=== PATIENT | male | born 1945 | race Caucasian/White ===

== ENCOUNTER 2017-04-27 05:24 | Inpatient (IN) ==
--- NOTE | 2017-04-27 05:35 | Emergency Department Note ---
Disposition Clinical Impression: Cerebrovascular accident Qualifiers: CVA mechanism: unspecified Qualified Code(s): I63.9 - Cerebral infarction, unspecified Disposition: Admitted As Inpatient Condition: Undetermined Referrals: Unassigned,Provider [Non-Partnered Physician] - Forms: ED Satisfaction Letter Time of Disposition: 06:32 Neuro HPI - General Chief Complaint: ED Neuro Symptoms/Deficit Stated Complaint: right arm numbness Time Seen by Provider: 04/27/17 05:28 Source: patient Mode of arrival: ambulatory Limitations: no limitations Nursing Notes Reviewed: Yes Vital Signs Reviewed: Yes - History of Present Illness HPI Narrative: 71-year-old male arrives [facility] emergency department complaining of right upper extremity numbness started at roughly 2 PM yesterday afternoon. The patient states he woke up roughly 45 minutes ago with complaint of total right upper and lower, and facial numbness and the patient states that he has never had a TIA or CVA in the past. The patient does have a cardiac history with previous cardiac stent. The patient takes medication for hyperlipidemia, hypertension. He is a not a diabetic. The patient denies any other complaints at this time including right upper or lower extremity weakness. The patient has had no slurred speech. The patient is ambulating around the emergency department prior to physical exam. He is well-appearing otherwise. He is answering all questions appropriately. He denies any other complaints at this time. Onset of Symptoms Date: 04/26/17 Onset of Symptoms Time: 14:00 Symptom Onset Unknown: No Timing confirmed by: spouse Location: right arm History of same: No Quality: numbness, tingling Symptoms Improving: No Improves with: none Worsens with: none Context: sudden onset On Anticoagulants: No Associated symptoms: Reports: denies other symptoms Treatments Prior to Arrival: none - Related Data Allergies/Adverse Reactions: Allergies Allergy/AdvReac Type Severity Reaction Status Date / Time No Known Allergies Allergy Verified 04/27/17 05:35 All systems ED: reviewed and negative except as stated. Constitutional: Denies: fever, chills, weakness, weight change Cardiovascular: Denies: chest pain, palpitations, dyspnea on exertion, edema, syncope Respiratory: Denies: cough, dyspnea, wheezes, hemoptysis, stridor Gastrointestinal: Denies: abdominal pain, nausea, vomiting, diarrhea, constipation, hematemesis, melena, hematochezia Musculoskeletal: Denies: back pain, neck pain, arthralgia, myalgia Integumentary: Denies: rash, abrasion, lesions Neurological: Reports: numbness. Denies: headache, weakness, paresthesias Past Medical History - Past Medical History Attestation: Yes The following information was validated with the patient. Source: patient Medical history: Reports: CHF, coronary artery disease, hypertension - Social History Smoking Status: Never smoker Smokeless Tobacco Status: No Alcohol use: Reports: none Drug use: Reports: none Physical Exam - General Limitations: no limitations General appearance: alert, in no apparent distress - Head Head exam: atraumatic, normocephalic, normal inspection - Eye Eye exam: Present: normal appearance, PERRL, EOMI - ENT ENT exam: normal exam, normal oropharynx, mucous membranes moist - Neck Neck exam: Present: normal inspection, full ROM, trachea midline - Chest Chest inspection: Present: normal inspection, symmetric chest wall rise - Respiratory Respiratory exam: Present: normal lung sounds bilaterally - Cardiovascular Cardiovascular exam: Present: regular rate, normal rhythm, normal heart sounds - Abdominal Exam Abdominal exam: Present: soft, Non-Tender. Absent: tenderness, distention, guarding, rebound, rigidity - Extremities Exam Extremities exam: Present: normal inspection, full ROM. Absent: tenderness, pedal edema - Neurological Exam Neurological exam: Present: alert, oriented X3, CN II-XII intact, normal gait - Expanded Neurological Exam Patient oriented to: Present: person, place, time Speech: Present: fluid speech Cranial nerves: EOM function (II, III, IV, ): Normal, facial sensation (V): Abnormal Right, facial palsy (VII): Normal, gag reflex (IX): Normal, spinal accessory function (XI): Normal, tongue deviation (XII): Normal Cerebellar function: normal gait Motor strength - LUE: 5/5 Motor strength - RUE: 5/5 Motor strength - LLE: 5/5 Motor strength - RLE: 5/5 Sensory exam upper extremity: light touch: Abnormal Right Sensory exam lower extremity: light touch: Abnormal Right Coma Scale Eye Opening: Spontaneous Coma Scale Motor Response: Obeys Commands Coma Scale Verbal Response: Oriented Coma Scale Total: 15 Course Vital Signs Temperature 98.0 F 04/27/17 05:25 Pulse Rate 71 04/27/17 05:25 Respiratory Rate 18 04/27/17 05:25 Blood Pressure 161/97 04/27/17 05:25 O2 Sat by Pulse Oximetry 98 04/27/17 05:25 Temperature 98.0 F 04/27/17 05:25 Pulse Rate 73 04/27/17 06:28 Respiratory Rate 18 04/27/17 06:28 Blood Pressure 162/93 04/27/17 06:28 O2 Sat by Pulse Oximetry 98 04/27/17 06:28 Oxygen Delivery Oxygen Delivery Room Air Neuro Symptoms/Deficit - MDM Narrative Medical decision making narrative: NIH of 1 due to numbness on the right side. We will admit the patient to the hospitalist. Accepted by Dr. Rios. - Lab Data Lab results reviewed: Yes I reviewed the patient's lab results. Result diagrams: 04/27/17 05:40 04/27/17 05:40 Lab Results 04/27/17 04/27/17 04/27/17 Range/Units 05:31 05:40 05:40 WBC 10.5 (4.3-11.1) K/mcL RBC 4.61 (4.19-5.50) M/mcL Hgb 14.5 (12.9-16.9) g/dL Hct 42.3 (37.5-50.1) % MCV 91.8 (83.0-100.0) fL MCH 31.5 (28.0-33.3) pg MCHC 34.3 (31.6-35.5) g/dL RDW 11.7 (11.5-14.5) % Plt Count 197 (140-400) K/mcL MPV 9.9 (9.4-12.4) fL Immature Gran % 0.4 (0-4) % Seg Neutrophils % 45.4 % Lymphocytes % 35.7 % Monocytes % 8.6 % Eosinophils % 8.8 % Basophils % 1.1 % Neutrophils # 4.8 (1.6-8.9) K/mcL Lymphocytes # 3.7 (0.6-4.6) K/mcL Monocytes # 0.9 (0.0-1.3) K/mcL Eosinophils # 0.9 H (0.0-0.6) K/mcL Basophils # 0.1 (0.0-0.2) K/mcL PT 10.9 (9.4-12.1) Seconds INR 1.0 APTT 29.2 (26.0-36.0) Seconds Sodium (136-145) mEq/L Potassium (3.5-4.5) mEq/L Chloride (98-109) mEq/L Carbon Dioxide (19-29) mEq/L BUN (8-26) mg/dL Creatinine (0.72-1.25) mg/dL Est GFR ( Amer) (> 60) Est GFR (Non-Af Amer) (> 60) BUN/Creatinine Ratio (6-26) Glucose (70-99) mg/dL POC Glucose 110 H (58-89) Calculated Osmolality (280-300) Calcium (8.6-10.8) mg/dL Troponin I (0-0.03) ng/mL 04/27/17 04/27/17 Range/Units 05:40 05:40 WBC (4.3-11.1) K/mcL RBC (4.19-5.50) M/mcL Hgb (12.9-16.9) g/dL Hct (37.5-50.1) % MCV (83.0-100.0) fL MCH (28.0-33.3) pg MCHC (31.6-35.5) g/dL RDW (11.5-14.5) % Plt Count (140-400) K/mcL MPV (9.4-12.4) fL Immature Gran % (0-4) % Seg Neutrophils % % Lymphocytes % % Monocytes % % Eosinophils % % Basophils % % Neutrophils # (1.6-8.9) K/mcL Lymphocytes # (0.6-4.6) K/mcL Monocytes # (0.0-1.3) K/mcL Eosinophils # (0.0-0.6) K/mcL Basophils # (0.0-0.2) K/mcL PT (9.4-12.1) Seconds INR APTT (26.0-36.0) Seconds Sodium 138 (136-145) mEq/L Potassium 3.4 L (3.5-4.5) mEq/L Chloride 103 (98-109) mEq/L Carbon Dioxide 27 (19-29) mEq/L BUN 14 (8-26) mg/dL Creatinine 1.06 (0.72-1.25) mg/dL Est GFR ( Amer) > 60 (> 60) Est GFR (Non-Af Amer) > 60 (> 60) BUN/Creatinine Ratio 13 (6-26) Glucose 119 H (70-99) mg/dL POC Glucose (58-89) Calculated Osmolality 288 (280-300) Calcium 9.3 (8.6-10.8) mg/dL Troponin I 0.00 (0-0.03) ng/mL - Radiology Data Radiology results reviewed: Yes I reviewed the patient's radiology results. - EKG Data EKG attestation: Yes I reviewed and interpreted this EKG. EKG results narrative: Heart rate 71 bpm. DC interval 154 ms. QTc 425 ms. Normal axis. Normal sinus rhythm. No ST elevation or ST depression noted. EKG demonstrates intermittent PVCs. Exception of PVCs EKG similar to EKG from 08/24/2010. No other acute changes noted. NIH Stroke Scale - Level of Consciousness LOC: Alert - LOC Questions LOC Questions: Answers both correctly - LOC Commands LOC Commands: Performs both correctly - Best Gaze Best Gaze: Normal - Visual Visual: No visual loss - Facial Palsy Facial Palsy: Normal - Motor Arms Motor Arm-Left: No drift for 10 seconds Motor Arm-Right: No drift for 10 seconds - Motor Legs Motor Leg-Left: No drift for 5 seconds Motor Leg-Right: No drift for 5 seconds - Limb Ataxia Limb Ataxia: Normal, No Ataxia - Sensory Sensory: Mild to moderate loss, "not as sharp" - Best Language Best Language: No aphasia - Dysarthria Dysarthria: Normal - Extinction and Inattention Extinction and Inattention: Normal - NIHSS Total Score NIHSS Total Score: 1 TPA Checklist - LKW: 3-4.5 hrs Add. Warnings/Precautions Patient/family understanding: The patient/family members have been counseled and understood the risk, benefit , and alternatives of treatment.
--- NOTE | 2017-04-27 05:37 | Emergency Department Note ---
START Narrative - START START: I examined this patient and my medical decision-making was reviewed with the RESTAURANT GREETER/PA/Advanced Practice Nurse/Resident Physician. I agree with the documented findings, disposition and treatment plan as described except to the extent set forth below. ED attending note: Patient seen with emergency medicine resident Dr. Perez. Please see a copy of his note for details of the H&P, evaluation, management and disposition of this patient. We independently had [id number] contact with the patient Briefly: 71-year-old male history of coronary artery disease and cardiac stents since 2 PM yesterday numbness and paresthesias of his right upper extremity. No affectation of speech, balance, no headache or visual disturbances. no prior TIAs or CVAs. Table vital signs. His NIH is 1. Some facial dysthesias as well. Cranial nerves II through XII tested and normal and intact. EKG shows no acute ischemic changes. Patient will get a TIA workup. Admission will be considered. Disposition pending
[2017-04-27 05:52] LABS: Prothrombin Time 10.9 Seconds (9.4-12.1)
[2017-04-27 05:55] LABS: Activated Partial Thrombo Time 29.2 Seconds (26.0-36.0)
[2017-04-27 05:56] LABS: Basophils # 0.1 K/mcL (0.0-0.2); Basophils % 1.1 %; Eosinophils # 0.9 K/mcL (0.0-0.6); Eosinophils % 8.8 %; Hematocrit 42.3 % (37.5-50.1); Hemoglobin 14.5 g/dL (12.9-16.9); Immature Granulocytes % 0.4 % (0-4); Lymphocytes # 3.7 K/mcL (0.6-4.6); Lymphocytes % 35.7 %; Mean Corpuscular HGB Conc 34.3 g/dL (31.6-35.5); Mean Corpuscular Hemoglobin 31.5 pg (28.0-33.3); Mean Corpuscular Volume 91.8 fL (83.0-100.0); Mean Platelet Volume 9.9 fL (9.4-12.4); Monocytes # 0.9 K/mcL (0.0-1.3); Monocytes % 8.6 %; Neutrophils # 4.8 K/mcL (1.6-8.9); Platelet Count 197 K/mcL (140-400); Red Blood Count 4.61 M/mcL (4.19-5.50); Red Cell Distribution Width 11.7 % (11.5-14.5); Segmented Neutrophils % 45.4 %
[2017-04-27 06:00] LABS: BUN/Creatinine Ratio 13 (6-26); Blood Urea Nitrogen 14 mg/dL (8-26); Calcium 9.3 mg/dL (8.6-10.8); Carbon Dioxide 27 mEq/L (19-29); Chloride 103 mEq/L (98-109); Glucose 119 mg/dL (70-99); Osmolality,Calculated 288 (280-300); Potassium 3.4 mEq/L (3.5-4.5); Sodium 138 mEq/L (136-145); eGFR For African Americans > 60 (> 60); eGFR For Non-African Americans > 60 (> 60)
[2017-04-27] MEDS ORDERED: Aspirin 325 MG TABLET PO ONE (06:14)
[2017-04-27] MEDS ORDERED: Naloxone 0.4 MG/ML INJ IVP PRN (07:36)
[2017-04-27] MEDS ORDERED: *HR* Morphine 2 MG/ML SYRINGE IVP PRN (07:36)
[2017-04-27] MEDS ORDERED: Ondansetron 4 MG/2 ML VIAL IVP PRN (07:36)
[2017-04-27] MEDS ORDERED: *HR* HYDROcodone/Acet 5/325 mg TABLET PO PRN (07:36)
[2017-04-27] MEDS ORDERED: Acetaminophen 325 MG TABLET PO PRN (07:36)
[2017-04-27 08:13] LABS: Chol/HDL Ratio 3.7 (0-4.9); Cholesterol 155 mg/dL (< 200); HDL Cholesterol 42 mg/dL (40-59); LDL Cholesterol,Calculated 86 mg/dL (0-99); Triglycerides 133 mg/dL (< 150)
--- NOTE | 2017-04-27 08:37 | Internal Med History&Physical ---
Date of Encounter: 04/27/17 Time of Encounter: 08:35 Assessment and Plan (1) Cerebrovascular accident Current visit: Yes Status: Acute Suspected, ischemic CVA, unlikely TIA NIHSS 1 for sensory deficits Continue Neurochecks q2H Head CT shows no infarcts Obtain Brain MRI Obtain ECHO, Carotid doppler No speech or motor deficits Neurology eval EKG shows PVC, baseline rhythm is sinus, continue telemetry monitoring Continue ASA 81mg daily Lipid panel is unremarkable patient takes Lipitor 40 at home, continue same BP is acceptable, resume home meds, no aggressive control PT/OT eval Patient may be fed if he passes the bedside swallow test Qualifiers: CVA mechanism: unspecified Qualified Code(s): I63.9 - Cerebral infarction, unspecified (2) Hypokalemia Current visit: Yes Status: Acute Replaced with po Follow repeat Chem a.m (3) HTN (hypertension) Current visit: Yes Status: Chronic Controlled, resume home meds Qualifiers: Hypertension type: essential hypertension Qualified Code(s): I10 - Essential (primary) hypertension (4) HLD (hyperlipidemia) Current visit: Yes Status: Chronic Lipid panel WNL continue Lipitor Qualifiers: Hyperlipidemia type: unspecified Qualified Code(s): E78.5 - Hyperlipidemia , unspecified (5) CAD (coronary artery disease) Current visit: Yes Status: Chronic No chest pain Resume home meds Qualifiers: Coronary Disease-Associated Artery/Lesion type: [place] artery [place] vs. transplanted heart: [place] heart Associated angina: without angina Qualified Code(s): I25.10 - Atherosclerotic heart disease of [place] coronary artery without angina pectoris (6) Sinusitis Current visit: Yes Status: Chronic Incidental finding on Brain CT patient has no symptoms, no facial tenderness or pressure Qualifiers: Sinusitis location: maxillary Chronicity: unspecified Qualified Code(s): J32.0 - Chronic maxillary sinusitis Internal Medicine - H&P: HPI Chief complaint: Right side numbness Admitted From: Home Plans for Post Hospital Care: Home History of present illness: Mr. Quezada is a 71 year old male with a past medical history for CHF, CAD sp stent >20 years ago, HTN who presented with right facial/perinasal, right upper and right lower extremity numbness. His symptoms started yesterday afternoon, 1400, with R facial and R UL numbness and slowly progressed to his R LE this morning, which prompted his to encourage him to come to the [facility]. He denies any motor weakness, speech deficits or facial droop. He denies any ataxia or gait imbalance, vertigo or dizziness, clumsiness of his hands or swallowing difficulty He also denies any change in taste sensation or neck stiffness, no confusion at any time He denies fever or chills, no chest pain, shortness of breath, orthopnea, PND, no leg swelling He is a known hypertensive and already takes aspirin at home for his CAD. He states he has been told he has "extra beats since his cath" he has never had a stroke or any neurologic problems before He does not have any GI or complains At time of review, his only deficit is sensory, giving him a NIHSS of 1, same as documented in the ER He was given ASA in the ER, work up remarkable for mild hypokalemia and Head CT showed no infarcts Past Med Surg Social Fam HX - Past Medical History Medical history: CHF, coronary artery disease, hypertension Psychiatric history: no psych history - Past Surgical History Surgical History: no surgical history - Social History Smoking Status: Never smoker Smokeless Tobacco Status: No Alcohol use: none Drug use: none Internal Medicine - H&P: Meds Aspirin Enteric Coated [Aspirin EC] 81 mg PO DAILY 04/27/17 [History] Atorvastatin [Lipitor] 40 mg PO HS 04/27/17 [History] Loratadine [Allergy Relief] 10 mg PO DAILY 04/27/17 [History] Metoprolol [Lopressor] 100 mg PO BID 04/27/17 [History] Multivitamin [Multi-Day Vitamins] 1 tab PO DAILY 04/27/17 [History] Ranitidine HCl [Acid Diamond Driller Helper] 150 mg PO DAILY 04/27/17 [History] hydroCHLOROthiazide [Hydrochlorothiazide] 12.5 mg PO DAILY 04/27/17 [History] Allergies No Known Allergies Allergy (Verified 04/27/17 05:35) All Systems PM: A 10-system review of systems was performed and is negative for pertinent findings except as documented above in the HPI. - Constitutional Constitutional: as per HPI - EENT Eyes: as per HPI Ears: as per HPI Nose, mouth and throat: as per HPI - Cardiovascular Cardiovascular ROS IM: as per HPI - Respiratory Respiratory: as per HPI - Gastrointestinal Gastrointestinal: as per HPI - Musculoskeletal Musculoskeletal ROS IM: as per HPI - Integumentary Integumentary IM: as per HPI - Neurological Neurological ROS: as per HPI - Hematologic/Lymphatic Hematologic/Lymphatic: no easy bruising - Constitutional Vitals: Temp Pulse Resp BP Pulse Ox 97.6 F 63 20 150/86 95 04/27/17 08:03 04/27/17 08:03 04/27/17 08:03 04/27/17 08:03 04/27/17 08:03 General appearance: Present: A&O X 3, pleasant, no acute distress - Head Head exam: Present: atraumatic, normocephalic - Eye Eye exam: Present: PERRL, conjuntiva pink, sclera anicteric Pupils: Present: PERRL - Neck Neck exam general surgery: Present: supple, trachea midline. Absent: lymphadenopathy - Respiratory Respiratory exam: Present: CTAB. Absent: accessory muscle use, rales, rhonchi, wheezes - Cardiovascular Cardiovascular exam: Present: RRR (Regularly irregular, lots of PVCs), +S1, + S2. Absent: diastolic murmur, gallop, rubs, systolic murmur - GI/Abdominal GI/Abdominal exam: Present: normal bowel sounds, soft, no peritoneal signs. Absent: distended, tenderness - Extremities Exam Extremities exam: Present: warm, radial pulses palpable and symetrical. Absent : calf tenderness, cyanotic, pedal edema - Neurological Exam Neurological exam: Present: alert, CN II-XII intact, oriented X3, no focal deficits. Absent: pronater drift, facial droop, speech deficit - Expanded Neurological Exam Neurological exam expanded: Absent: receptive aphasia, total aphasia Patient oriented to: Present: person, place, time Cranial Nerves: EOM's intact PM: Normal, gag reflex PM: Normal, nystagmus PM: Normal, tongue deviation PM: Normal Sensory exam: lower extremity light touch: Abnormal Right, upper extremity light touch: Abnormal Right Neuro motor strength exam: LUE: 5, RUE: 5, LLE: 5, RLE: 5 - Skin Skin exam: Present: dry, intact Internal Med - H&P Results - Labs CBC & Chem 7: 04/27/17 05:40 04/27/17 05:40
--- NOTE | 2017-04-27 08:59 | Neurology - Consult Note ---
<Tariq Dunn - Last Filed: 04/27/17 08:51> Date of Encounter: 04/27/17 Time of Encounter: 08:10 Assessment and Plan (1) Cerebrovascular accident Current Visit: Yes Status: Acute Patient's history and presentation concerning for CVA and cardiac assessing whether this is TIA versus stroke. Patient's symptoms have been less than 24 hours ago at 1400 hrs. one day ago. Patient's symptoms worsen to include his right side of face lower extremity this morning but Patient has not seen any increase in symptoms since he woke up this morning. No reports of difficulty swallowing the patient has not eaten since 1 day ago in the evening. Note deficits outside of the changes in sensation were found on examination Plan: MRI, Echocardiogram, carotid Doppler. Patient has been given aspirin in the ED and started on lovenox. Patient needs swallow eval to make sure no difficulties. Once bedside swallow was complete patient could not have a diet. Repeat neuro checks every 2 hours for any new deficits or to assess for any change in patient's current condition. Continue on statin as well. Qualifiers: CVA mechanism: unspecified Qualified Code(s): I63.9 - Cerebral infarction, unspecified History of Present Illness Chief complaint: right sided weakness HPI: Mr. Quezada is a 71 year old male with a past medical history for CHF, CAD, HTN or we are consulted for possible CVA stroke versus TIA symptoms of right upper and right lower extremity weakness with paresthesias to the right side of face of right upper lip and nasolabial fold and right side of body. Patient states onset of symptoms was 1400 hrs. 1 day ago. Patient states he got shower and noticed some numbness to his right hand which she thought was related to trigger finger worsening or carpal tunnel. Patient states he noticed some heaviness to his complete right side upper body at the time as well. Patient's at bedside stated that if she had known there was more involvement than just his hand she would have brought him in sooner. Patient woke up this morning around 0400 hrs. and notice an increase in symptoms to include his right lower extremity and right side of his face. Patient was brought to the emergency department and assessed to have no other deficits except for changes in sensation or tenderness body and face. Patient is on aspirin at home 81 mg and was given 325 mg in the ED. Patient is also already on atorvastatin, metoprolol, hctz Patient denies any changes in vision, changes in hearing, changes in speech or facial drooping, difficulty swallowing, difficulty speaking, change in mental status, difficulty breathing, chest pain or palpitations or back pain or neck pain, abdominal pain, bowel or urinary incontinence, gait change or difficulty walking. Patient also denies fever, chills, night sweats, headache. Patient has one stent placed back in 1996 with no issues since then. Patient quit smoking several years ago Past Med Surg Social Fam HX - Past Medical History Attestation: Yes The following information was validated with the patient. Source: patient Medical history: CHF, coronary artery disease, hypertension Psychiatric history: no psych history - Past Surgical History Surgical History: no surgical history - Social History Smoking Status: Never smoker Smokeless Tobacco Status: No Alcohol use: none Drug use: none Medications and Allergies Aspirin Enteric Coated [Aspirin EC] 81 mg PO DAILY 04/27/17 [History] Atorvastatin [Lipitor] 40 mg PO HS 04/27/17 [History] Loratadine [Allergy Relief] 10 mg PO DAILY 04/27/17 [History] Metoprolol [Lopressor] 100 mg PO BID 04/27/17 [History] Multivitamin [Multi-Day Vitamins] 1 tab PO DAILY 04/27/17 [History] Ranitidine HCl [Acid Systems Trainer] 150 mg PO DAILY 04/27/17 [History] hydroCHLOROthiazide [Hydrochlorothiazide] 12.5 mg PO DAILY 04/27/17 [History] Allergies No Known Allergies Allergy (Verified 04/27/17 05:35) All Systems: A 10-system review of systems was performed and is negative for pertinent findings except as documented above in the HPI. - Constitutional Constitutional ROS IM: as per HPI Physical Examination - Vital Signs Vital Signs: Initial Vital Signs Temp Pulse Resp BP Pulse Ox 98.0 F 71 18 161/97 98 04/27/17 05:25 04/27/17 05:25 04/27/17 05:25 04/27/17 05:25 04/27/17 05:25 - Exam Exam: -General Appearance: Patient is a 71-year-old male who is alert and oriented 3 in no acute distress. Patient to sit up right and converse without issue. Patient has no visual neurological deficits of facial drooping, no sounds of aphasia or dysarthria. Patient's able to stand up for me and ambulate without issue. Patient performed chicken dance without any issues. -Neurological exam: Cranial nerves II-12 intact, no focal deficits observed, strength equal 5/5 bilaterally in upper and lower extremities, changes in sensation and facial region right nasolabial fold without signs of loss or flattening of the fold extending to right-sided upper lip region. No drooping of the corner of the mouth on either side. Dampening of sensation to light touch extends down the patient's right-sided neck and upper shoulder right upper extremity right axillary region right lateral lower leg area. Sensation to temperature intact, 2 point discrimination intact across fingers bilaterally. - Head Head exam: atraumatic, normocephalic, normal inspection - Eye Eye exam: Present: normal appearance, PERRL, EOMI, negative for scleral icterus negative for conjunctival pallor - ENT ENT exam: normal exam, normal oropharynx, mucous membranes moist - Neck Neck exam: Present: normal inspection, full ROM, trachea midline, negative JVD - Chest Chest inspection: Present: Patient has bilateral equal rise and fall of chest wall. Non-tender to palpation. - Respiratory Respiratory exam: Clear to auscultation bilaterally without wheezes rales or rhonchi Cardiovascular Cardiovascular exam: Present: regular rate, normal rhythm, normal heart sounds, without murmurs rubs or gallops. - Abdominal Exam Abdominal exam: Present: soft, nondistended, Non-Tender light and deep palpation in all quadrants. Bowel sounds normoactive throughout all 4 quadrants. Negative for hyper or hyperresonance. - Extremities Exam Extremities exam: Present: normal inspection, full ROM - Back Exam Back exam: Present: normal inspection, full ROM. Absent: tenderness, CVA tenderness (R), CVA tenderness (L) - Psychiatric Psychiatric exam: Present: normal affect, normal mood - Skin Skin exam: Present: warm, dry, intact, normal color - Constitutional General appearance: comfortable - Neurologic Sensorimotor examination: intact Detailed motor examination: grossly full strength in all extremities, full strength in all major muscle groups Motor examination - right side: 5/5: deltoids, biceps, triceps, wrist flexion, wrist extension, buffing turner and counter, hip flexors, tibialis Anterior, quadriceps, toe extension (EHL), plantarflexion Motor examination - left side: 5/5: deltoids, biceps, triceps, wrist flexion, wrist extension, hip flexors, buffing turner and counter, quadriceps, tibialis Anterior, toe extension (EHL), plantarflexion Detailed sensory examination: intact, light touch (Less than on the right side in the areas previously described to include and neck, shoulder, right upper extremity, right lower extremity in the lower leg lateral region), two-point discrimination, temperature, position sense Reflex and gait examination: normal gait Reflexes: Biceps: 2+, Triceps: 2+, Brachioradialis: 2+, Patella: 2+, Achilles: 2 + Mental Status Examination: awake, alert, oriented to person, oriented to place, oriented to time, follows commands appropriately, answers questions appropriately, no agnosia, no aphasia, no aproxia Cranial nerve examination: PERRL, EOMI, visual woods intact, corneal reflexes brisk symmetrically, sensory to face intact, mastication intact, no facial asymmetry is present, no dysarthria, hearing is intact symmetrically, soft palate elevates bilaterally upon phonation, gag reflex intact, flexes SCM and trapezius muscles symmetrically with full power, tongue protrudes midline, no atrophy or facial fasiculations present Cranial Nerve Exam: nystagmus: Left Cerebellar examination: no dysmetria, performs finger to nose and heel to julien symmetrically without ataxia, no gait ataxia, no truncal ataxia, no difficulty with rapid alternating movements Results - Laboratory Findings CBC and BMP: 04/27/17 05:40 04/27/17 05:40 Abnormal lab findings: Abnormal lab results Eosinophils # 0.9 K/mcL (0.0-0.6) H 04/27/17 05:40 Potassium 3.4 mEq/L (3.5-4.5) L 04/27/17 05:40 Glucose 119 mg/dL (70-99) H 04/27/17 05:40 POC Glucose 110 (58-89) H 04/27/17 05:31 - Diagnostic Findings Additional findings: Head CT 04/27/17 05:33 IMPRESSION: No acute hemorrhage or definite evidence for acute ischemia. Acute bilateral maxillary sinusitis. D/ / Francisco J Marcial MD / Francisco J Marcial MD Interpreting Provider: Francisco J Marcial MD Consult Discharge Plan - Plan Referrals: May Kyle, ELECTRIC TRUCK CRANE OPERATOR [Advanced Practice Nurse] - 05/07/17 2:00 pm <Soo Schulte - Last Filed: 04/27/17 14:40> Date of Encounter: 04/27/17 History of Present Illness HPI: Mr. Quezada is a 71 year old male All Systems: A 10-system review of systems was performed and is negative for pertinent findings except as documented above in the HPI. Physical Examination - Vital Signs Vital Signs: Initial Vital Signs Temp Pulse Resp BP Pulse Ox 98.0 F 71 18 161/97 98 04/27/17 05:25 04/27/17 05:25 04/27/17 05:25 04/27/17 05:25 04/27/17 05:25 Results - Laboratory Findings CBC and BMP: 04/27/17 05:40 04/27/17 05:40 Abnormal lab findings: Abnormal lab results Eosinophils # 0.9 K/mcL (0.0-0.6) H 04/27/17 05:40 Potassium 3.4 mEq/L (3.5-4.5) L 04/27/17 05:40 Glucose 119 mg/dL (70-99) H 04/27/17 05:40 POC Glucose 110 (58-89) H 04/27/17 05:31
--- NOTE | 2017-04-27 13:41 | Electrocardiograph Report ---
[address] [address] Test Date: 2017-04-27 Pat Name: Say Quezada Department: 105 Room: 2NE28 Gender: M Clay Carman: DESI : 1945 Requested By: Emmanuel Yao Order Number: [id number] Reading MD: Sarath Mahoney MD Measurements Intervals [place] Rate: 71 P: 11 UT: 154 QRS: 2 QRSD: 101 T: 29 QT: 403 QTc: 425 Interpretive Statements SINUS RHYTHM WITH OCCASIONAL VENTRICULAR PREMATURE COMPLEXES Electronically Signed On 04-27-2017 13:39:22 EDT by Sarath Mahoney MD
[2017-04-27] MEDS: hydroCHLOROthiazide 25 MG TABLET PO SCH (14:44)
[2017-04-27] MEDS: Loratadine 10 MG TABLET PO SCH (14:44)
[2017-04-27] MEDS: Famotidine 20 MG TABLET PO SCH (14:44)
[2017-04-27] MEDS: Metoprolol 100 MG TABLET PO SCH ×2 (14:44→20:12)
[2017-04-27] MEDS: Multivit/Ca/Min/Fe/FA 1 TAB TABLET PO SCH (14:45)
--- NOTE | 2017-04-27 17:58 | Carotid Imaging Report ---
Carotid Duplex Patient Name:Say Quezada Order Number:[id number] Procedure Date:04/27/2017 Date:1945ge:71 yrs Gender:Male Lt BP:150 / 86 mmHg Rt.BP:150 / 86 mmHgHeart Rate: Location:[facility] Room #: 2NE28 Tack Picker:Rosalind Hill Referring MD:Patrick Sun MD hangar attendant:Kayli Post MD Reading MD:Brandon Marcano MD Primary Indications:r/o CVA Risk Factors Yes/No Hypertension Hypercholesterolemia Smoker Previous Impressions: Findings: Bilateral carotid system has nonstenotic plaque. Findings Carotid Duplex: Right: There is nonstenotic plaque in the right bifurcation. There is smooth homogeneous plaque. Left: There is nonstenotic plaque in the left bifurcation. There is smooth heterogeneous plaque. There is nonstenotic plaque in the left proximal internal carotid artery. There is smooth plaque. The left eca has turbulent flow with plaque. There is calcified plaque. The left distal internal carotid artery was not well visualized. Prior Study: No prior study available for comparison. Carotid Results Right PSV EDV Assessment Proximal CCA 113 28 Normal Mid CCA 92 28 Normal Distal CCA 61 16 Normal Bifurcation 57 18 Non Stenotic Plaque Proximal ICA 62 14 Normal Mid ICA 86 33 Normal Distal ICA 82 34 Normal ECA 88 20 Normal Vertebral Artery 48 14 Antegrade Flow Left PSV EDV Assessment Proximal CCA 87 22 Normal Mid CCA 88 28 Normal Distal CCA 77 28 Normal Bifurcation 75 28 Non Stenotic Plaque Proximal ICA 79 28 Non Stenotic Plaque Mid ICA 101 41 Normal Distal ICA 108 36 Not Well Visualized ECA 87 18 Non Stenotic Plaque Vertebral Artery 52 14 Antegrade Flow Ratio's Right ICA/CCA Ratio: 0.93 ICA/CCA Values: 86/92 Left ICA/CCA Ratio: 1.23 ICA/CCA Values: 108/88 Updated by Brandon Marcano MD on 04/27/2017 5:52:33 PM electronically signed on 04/27/2017 5:52:46 PM with status of Final
[2017-04-28] MEDS ORDERED: *HR* Enoxaparin 40 MG/0.4 ML SYRINGE SQ SCH (06:00)
[2017-04-28] MEDS: hydroCHLOROthiazide 25 MG TABLET PO SCH (07:44)
[2017-04-28] MEDS: Metoprolol 100 MG TABLET PO SCH (07:45)
[2017-04-28] MEDS: Famotidine 20 MG TABLET PO SCH (07:45)
[2017-04-28] MEDS: Multivit/Ca/Min/Fe/FA 1 TAB TABLET PO SCH (07:45)
[2017-04-28] MEDS: Loratadine 10 MG TABLET PO SCH (07:45)
[2017-04-28] MEDS ORDERED: Aspirin 81 MG TAB.CHEW PO SCH (09:00)
[2017-04-28 09:38] LABS: Alanine Aminotransferase 29 Units/L (0-55); Albumin 3.8 g/dL (3.5-5.0); Albumin/Globulin Ratio 1.1 (1.1-2.2); Alkaline Phosphatase 80 Units/L (38-126); Aspartate Amino Transferase 27 Units/L (5-34); BUN/Creatinine Ratio 15 (6-26); Blood Urea Nitrogen 16 mg/dL (8-26); Calcium 9.6 mg/dL (8.6-10.8); Carbon Dioxide 27 mEq/L (19-29); Chloride 102 mEq/L (98-109); Globulin 3.5 g/dL (2.4-3.5); Glucose 150 mg/dL (70-99); Osmolality,Calculated 286 (280-300); Potassium 4.1 mEq/L (3.5-4.5); Sodium 136 mEq/L (136-145); Total Protein 7.3 g/dL (6.0-8.3); eGFR For African Americans > 60 (> 60); eGFR For Non-African Americans > 60 (> 60)
[2017-04-28 09:46] LABS: Basophils # 0.1 K/mcL (0.0-0.2); Basophils % 1.2 %; Eosinophils # 0.7 K/mcL (0.0-0.6); Hematocrit 43.2 % (37.5-50.1); Hemoglobin 14.8 g/dL (12.9-16.9); Immature Granulocytes % 0.4 % (0-4); Lymphocytes # 2.2 K/mcL (0.6-4.6); Lymphocytes % 26.2 %; Mean Corpuscular HGB Conc 34.3 g/dL (31.6-35.5); Mean Corpuscular Hemoglobin 32.1 pg (28.0-33.3); Mean Corpuscular Volume 93.7 fL (83.0-100.0); Mean Platelet Volume 10.1 fL (9.4-12.4); Monocytes # 0.7 K/mcL (0.0-1.3); Monocytes % 7.7 %; Neutrophils # 4.8 K/mcL (1.6-8.9); Platelet Count 197 K/mcL (140-400); Red Blood Count 4.61 M/mcL (4.19-5.50); Red Cell Distribution Width 11.9 % (11.5-14.5); Segmented Neutrophils % 56.5 %
--- NOTE | 2017-04-28 11:40 | Discharge Summary ---
Date of Encounter: 04/28/17 Time of Encounter: 11:36 - Discharge Diagnosis (1) Cerebrovascular accident Priority: Primary Status: Acute Qualifiers: CVA mechanism: unspecified Qualified Code(s): I63.9 - Cerebral infarction, unspecified (2) HTN (hypertension) Priority: Secondary Status: Chronic Qualifiers: Hypertension type: essential hypertension Qualified Code(s): I10 - Essential (primary) hypertension (3) CAD (coronary artery disease) Priority: Secondary Status: Chronic Qualifiers: Coronary Disease-Associated Artery/Lesion type: [place] artery [place] vs. transplanted heart: [place] heart Associated angina: without angina Qualified Code(s): I25.10 - Atherosclerotic heart disease of [place] coronary artery without angina pectoris (4) HLD (hyperlipidemia) Priority: Secondary Status: Chronic Qualifiers: Hyperlipidemia type: unspecified Qualified Code(s): E78.5 - Hyperlipidemia , unspecified - Discharge Medications Prescriptions: Aspirin Enteric Coated [Aspirin EC] 325 mg PO DAILY #90 tablet. Home Medications: Atorvastatin [Lipitor] 40 mg PO HS 04/27/17 [History] Loratadine [Allergy Relief] 10 mg PO DAILY 04/27/17 [History] Metoprolol [Lopressor] 100 mg PO BID 04/27/17 [History] Multivitamin [Multi-Day Vitamins] 1 tab PO DAILY 04/27/17 [History] Ranitidine HCl [Acid Asian Studies Professor] 150 mg PO DAILY 04/27/17 [History] hydroCHLOROthiazide [Hydrochlorothiazide] 12.5 mg PO DAILY 04/27/17 [History] Aspirin Enteric Coated [Aspirin EC] 325 mg PO DAILY #90 tablet. 04/28/17 [Rx] Allergies/Adverse Reactions: Allergies No Known Allergies Allergy (Verified 04/27/17 05:35) Procedures/tests Complete & Pending: Procedures Performed prior 72 hours Category Date Time Status MR head/brain wo con [MR] Stat MRI 04/27/17 07:40 Completed ECG 12 lead ECG [ECG] Routine Y 04/27/17 05:34 Completed EV carotid duplex imaging BI Routine Y 04/27/17 07:41 Completed EV echocardiogram Routine Y 04/27/17 07:40 Completed Date of admission: 04/27/17 07:37 Primary care physician: Kayli Post, Consults: 04/27/17 07:38 Consult to Neurology [CONS] Routine Consulting Provider: [facility] Reason for Consult: TIA, r/o CVA Call Completed: No Discharging clinician: Emmanuel Yao - Patient Status Disposition: Home, Self-Care Condition: Undetermined Functional capacity at discharge: independent ambulation Overall status at discharge: patient is progressing back to baseline - Discharge Instructions Follow Up With: May Kyle CNP [Advanced Practice Nurse] - 05/07/17 2:00 pm Soo Schulte MD [Partnered Physician] - Reagan Parks CNP [Advanced Practice Nurse] - - Diet and Activity Activity: as per physical therapy, increase activity as tolerated Diet: low fat, low cholesterol Interval History: Mr. Quezada is a 71 year old male with a past medical history for CHF, CAD sp stent >20 years ago, HTN who presented with right facial/perinasal, right upper and right lower extremity numbness. His symptoms started yesterday afternoon, 1400, with R facial and R UL numbness and slowly progressed to his R LE this morning, which prompted his to encourage him to come to the [facility]. He denies any motor weakness, speech deficits or facial droop. He denies any ataxia or gait imbalance, vertigo or dizziness, clumsiness of his hands or swallowing difficulty.He also denies any change in taste sensation or neck stiffness, no confusion at any time He denies fever or chills, no chest pain, shortness of breath, orthopnea, PND, no leg swelling. He is a known hypertensive and already takes aspirin at home for his CAD. He states he has been told he has "extra beats since his cath" he has never had a stroke or any neurologic problems before. He does not have any GI or complains. At time of review, his only deficit is sensory, giving him a NIHSS of 1, same as documented in the ER Hospital course: Patient was hospitalized. Since his aspirin failure TIA/CVA further workup was ordered. CT head: Negative for any acute ischemia/hemorrhage. MRI of the head: Left thalamic lacunar infarct. No hemorrhagic CVA. Ultrasound carotids: No stenotic plaque. Echocardiogram: EF 60%, no valvular dysfunction, no pulmonary hypertension, possible small PFO. Neurology consult: Evaluated by neurology, recommended aspirin 325 enteric- coated history of 81 mg. I discussed personally this case with the neurologist this morning and neurologist recommended discharge and follow-up as outpatient with him. Plan: home Today Follow up with PCP in 1-2 weeks. Follow-up with neurology in 2-4 weeks. In view of previous history of coronary artery disease at this point patient does not have any follow-up with cardiology, I recommended patient to follow up with cardiology for further workup as outpatient. Patient verbalized understanding. At the time of discharge patient does not have any question, concerns, update or recommendations. All QUESTIONS answered - Time Spent with Patient Total time spent providing and/or coordinating discharge services: - Constitutional Vitals: Temp Pulse Resp BP Pulse Ox 97.6 F 65 18 132/75 96 04/28/17 08:00 04/28/17 08:00 04/28/17 08:00 04/28/17 08:00 04/28/17 08:00 General appearance: Present: A&O X 3, pleasant, no acute distress - Head Head exam: Present: atraumatic, normocephalic - Eye Eye exam: Present: PERRL, conjuntiva pink, sclera anicteric Pupils: Present: PERRL - Neck Neck exam general surgery: Present: supple, trachea midline. Absent: lymphadenopathy - Respiratory Respiratory exam: Present: CTAB. Absent: accessory muscle use, rales, rhonchi, wheezes - Cardiovascular Cardiovascular exam: Present: RRR, +S1, +S2. Absent: diastolic murmur, gallop, rubs, systolic murmur - GI/Abdominal GI/Abdominal exam: Present: normal bowel sounds, soft, no peritoneal signs. Absent: distended, tenderness - Extremities Exam Extremities exam: Present: warm, radial pulses palpable and symetrical. Absent : calf tenderness, cyanotic, pedal edema - Neurological Exam Neurological exam: Present: CN II-XII intact, oriented X3, no focal deficits. Absent: pronater drift, facial droop, speech deficit - Skin Skin exam: Present: dry, intact
[2017-04-28 11:52] VITALS: BP 132/96
== END 2017-04-28 18:28 | disposition home or self-care (01) ==
LOC: 2NENU 05:24 → EMEROO 05:24 → 2NENU 07:11
PROVIDERS: ADMIT Internal Medicine; ATTEND Internal Medicine

== ENCOUNTER 2019-12-18 10:52 | Observation (INO) ==
[~2019-12-18 10:52] MED LIST: Famotidine 20 MG/2 ML VIAL IVP ONE; Gabapentin 100 MG CAPSULE PO ONE
[2019-12-18] MEDS ORDERED: CeFAZolin Syr 2,000MG/20 ML 2,000 MG/20 ML SYRINGE IVPB ONE (11:11)
[2019-12-18] MEDS ORDERED: Albuterol 2.5 MG/3 ML NEBULIZER IH PRN (11:11)
[2019-12-18] MEDS ORDERED: Ringers Solution, Lactated 1,000 ML IVC SCH ×2 (11:15→19:47)
[2019-12-18] MEDS ORDERED: *HR* FentaNYL (PF) 100 MCG/2 ML VIAL ONE ×2 (12:54→17:06)
[2019-12-18] MEDS ORDERED: *HR* Propofol 200 MG/20 ML VIAL IVP ONE (12:54)
[2019-12-18] MEDS ORDERED: Lidocaine -MPF 2% 2 ML VIAL ONE ×2 (12:55→18:20)
[2019-12-18] MEDS ORDERED: *HR* Succinylcholine 200 MG/10 ML VIAL IVP ONE (12:55)
[2019-12-18] MEDS ORDERED: Lidocaine HCL 4 ML Topical Solution (Laryng-O-Jet Kit Sterile Pak) TP ONE (12:55)
[2019-12-18] MEDS ORDERED: Dexamethasone 4 MG/ML VIAL ONE (12:55)
[2019-12-18] MEDS ORDERED: Ondansetron 4 MG/2 ML VIAL ONE (12:55)
[2019-12-18] MEDS ORDERED: Lidocaine/EPI 1:100k 1% 20 ML VIAL ONE (13:25)
[2019-12-18] MEDS ORDERED: EPHEDrine 50 MG/ML VIAL ONE (14:40)
[2019-12-18] MEDS ORDERED: *HR* PHENYLEPHRINE 1,000 MCG/10 ML SYRINGE IVP ONE (14:40)
[2019-12-18] MEDS ORDERED: *HR* HYDROMORPHONE 2 MG/ML VIAL ONE (18:17)
[2019-12-18] MEDS ORDERED: Acetaminophen 325 MG TABLET PO PRN (19:47)
[2019-12-18] MEDS ORDERED: *HR* HYDROcodone/Acet 5/325 mg TABLET PO PRN (19:47)
[2019-12-18] MEDS ORDERED: Ondansetron 4 MG/2 ML VIAL IVP PRN (19:47)
[2019-12-18] MEDS ORDERED: Naloxone 0.4 MG/ML INJ IVP PRN (19:47)
[2019-12-18] MEDS ORDERED: *HR* OxyCODONE Immed Rel 5 MG TABLET PO PRN (19:47)
[2019-12-18] MEDS: Famotidine 20 MG TABLET PO SCH (20:19)
[2019-12-18] MEDS: Metoprolol 100 MG TABLET PO SCH (20:27)
[2019-12-18] MEDS: ceFAZolin 2,000 MG in 0.9 % Sodium Chloride 100 ML IVPB SCH (23:40)
[2019-12-19 07:30] VITALS: BP 126/73
[2019-12-19] MEDS: ceFAZolin 2,000 MG in 0.9 % Sodium Chloride 100 ML IVPB SCH (08:44)
[2019-12-19] MEDS: Metoprolol 100 MG TABLET PO SCH (08:45)
[2019-12-19] MEDS: Famotidine 20 MG TABLET PO SCH (08:45)
[2019-12-19] MEDS ORDERED: Loratadine 10 MG TABLET PO SCH (09:00)
[2019-12-19] MEDS ORDERED: hydroCHLOROthiazide 25 MG TABLET PO SCH (09:00)
== END 2019-12-19 11:33 | disposition home or self-care (01) ==
LOC: SAMDAY 10:52 → 2ANU 10:52
PROVIDERS: ADMIT Otolaryngology; ATTEND Otolaryngology

== ENCOUNTER 2021-06-24 12:28 | Inpatient (IN) ==
[2021-06-24 13:23] LABS: Basophils # 0.1 K/mcL (0.0-0.2); Basophils % 0.9 %; Eosinophils # 0.2 K/mcL (0.0-0.6); Eosinophils % 2.8 %; Hematocrit 43.4 % (37.5-50.1); Hemoglobin 14.9 g/dL (12.9-16.9); Immature Granulocytes % 0.1 % (0-4); Lymphocytes # 1.7 K/mcL (0.6-4.6); Mean Corpuscular HGB Conc 34.3 g/dL (31.6-35.5); Mean Corpuscular Hemoglobin 32.7 pg (28.0-33.3); Mean Corpuscular Volume 95.2 fL (83.0-100.0); Mean Platelet Volume 9.9 fL (9.4-12.4); Monocytes # 0.6 K/mcL (0.0-1.3); Monocytes % 7.4 %; Neutrophils # 5.2 K/mcL (1.6-8.9); Platelet Count 194 K/mcL (140-400); Red Blood Count 4.56 M/mcL (4.19-5.50); Red Cell Distribution Width 11.5 % (11.5-14.5); Segmented Neutrophils % 66.8 %; White Blood Count 7.8 K/mcL (4.3-11.1)
[2021-06-24 13:44] LABS: BUN/Creatinine Ratio 15 (6-26); Blood Urea Nitrogen 14 mg/dL (8-23); Calcium 9.7 mg/dL (8.6-10.3); Carbon Dioxide 27 mEq/L (23-29); Chloride 103 mEq/L (98-107); Glucose 155 mg/dL (70-105); Osmolality,Calculated 288 (280-300); Potassium 4.3 mEq/L (3.5-5.1); Sodium 137 mEq/L (136-145); eGFR For African Americans > 60 (> 60); eGFR For Non-African Americans > 60 (> 60)
[2021-06-24 13:46] LABS: Troponin I < 0.03 ng/mL (< 0.04)
[2021-06-24 13:57] LABS: Thyroid Stimulating Hormone 2.553 mcIU/mL (0.340-5.600)
[2021-06-24] MEDS ORDERED: *HR* Enoxaparin 80 MG/0.8 ML SYRINGE SQ STA (14:33)
[2021-06-24] MEDS ORDERED: Ondansetron 4 MG/2 ML VIAL IVP PRN (15:27)
[2021-06-24] MEDS ORDERED: Naloxone 0.4 MG/ML INJ IVP PRN (15:27)
[2021-06-24] MEDS ORDERED: *HR* HYDROcodone/Acet 5/325 mg TABLET PO PRN (15:28)
[2021-06-24] MEDS ORDERED: DilTIAZem CD (24hr) 120 MG CAP.ER.24H PO SCH (15:45)
[2021-06-24] MEDS ORDERED: Dextrose Gel 15 GM/37.5 ML TUBE PO PRN ×2 (15:47)
[2021-06-24] MEDS ORDERED: D5% in Water 1,000 ML IVC PRN (15:47)
[2021-06-24] MEDS ORDERED: *HR* Dextrose 50 % in Water (Vial) 50 ML VIAL IVP PRN (15:47)
[2021-06-24] MEDS ORDERED: Metoprolol 100 MG TABLET PO SCH (16:30)
[2021-06-24] MEDS: Insulin LISPRO 300 UNITS/3 ML VIAL SUBQ SCH ×2 (17:17→21:36)
[2021-06-25] MEDS: *HR* Enoxaparin 80 MG/0.8 ML SYRINGE SQ SCH ×2 (05:16→17:44)
[2021-06-25] MEDS ORDERED: Perflutren Lipid Microsphere 1.3 ML in 0.9 % Sodium Chloride 8.7 ML IVP PRN ×2 (07:13→09:01)
[2021-06-25 07:29] LABS: Basophils # 0.1 K/mcL (0.0-0.2); Eosinophils # 0.6 K/mcL (0.0-0.6); Eosinophils % 7.2 %; Hematocrit 40.6 % (37.5-50.1); Immature Granulocytes % 0.4 % (0-4); Lymphocytes # 2.3 K/mcL (0.6-4.6); Lymphocytes % 27.1 %; Mean Corpuscular HGB Conc 34.5 g/dL (31.6-35.5); Mean Corpuscular Hemoglobin 32.3 pg (28.0-33.3); Mean Corpuscular Volume 93.5 fL (83.0-100.0); Mean Platelet Volume 10.1 fL (9.4-12.4); Monocytes # 0.7 K/mcL (0.0-1.3); Monocytes % 8.1 %; Neutrophils # 4.7 K/mcL (1.6-8.9); Platelet Count 195 K/mcL (140-400); Red Blood Count 4.34 M/mcL (4.19-5.50); Red Cell Distribution Width 11.6 % (11.5-14.5); Segmented Neutrophils % 56.2 %; White Blood Count 8.3 K/mcL (4.3-11.1)
[2021-06-25 07:56] LABS: BUN/Creatinine Ratio 15 (6-26); Blood Urea Nitrogen 15 mg/dL (8-23); Carbon Dioxide 25 mEq/L (23-29); Chloride 104 mEq/L (98-107); Glucose 109 mg/dL (70-105); Magnesium 2.1 mg/dL (1.6-2.6); Osmolality,Calculated 285 (280-300); Phosphorous 3.2 mg/dL (2.7-4.5); Potassium 4.1 mEq/L (3.5-5.1); Sodium 137 mEq/L (136-145); eGFR For African Americans > 60 (> 60); eGFR For Non-African Americans > 60 (> 60)
[2021-06-25] MEDS ORDERED: Metoprolol 100 MG TABLET PO SCH (09:00)
[2021-06-25] MEDS: Insulin LISPRO 300 UNITS/3 ML VIAL SUBQ SCH ×4 (10:26→20:47)
[2021-06-25] MEDS ORDERED: Isovue-370 500 ML BOTTLE IVP ONE ×2 (10:35→17:10)
[2021-06-25] MEDS: Metoprolol XL (24 HR) Succ 50 MG TAB.ER.24H PO SCH ×2 (10:38→20:46)
[2021-06-25] MEDS: Aspirin Enteric Coated 81 MG Tablet PO SCH (10:38)
[2021-06-25] MEDS: lisinopriL 5 MG TABLET PO SCH (15:27)
[2021-06-25 17:11] LABS: Bilirubin,Urine Negative (Negative); Blood,Urine Small (Negative); Clarity,Urine Clear (Clear); Color,Urine Colorless (Yellow); Glucose,Urine (UA) Normal (Normal); Ketones,Urine Negative (Negative); Leukocyte Esterase,Urine Negative (Negative); Nitrite,Urine Negative (Negative); PH,Urine 6.5 pH Units (5.0-8.0); Protein,Urine Trace mg/dL (Neg-Trace); Specific Gravity,Urine > 1.030 (1.010-1.025); Urobilinogen,Urine Normal (Normal); WBC,Urine 0-3 per hpf (0-3)
[2021-06-26 02:08] LABS: Hematocrit 39.5 % (37.5-50.1); Hemoglobin 13.5 g/dL (12.9-16.9); Mean Corpuscular HGB Conc 34.2 g/dL (31.6-35.5); Mean Corpuscular Volume 93.6 fL (83.0-100.0); Mean Platelet Volume 10.3 fL (9.4-12.4); Platelet Count 192 K/mcL (140-400); Red Blood Count 4.22 M/mcL (4.19-5.50); Red Cell Distribution Width 11.7 % (11.5-14.5); White Blood Count 7.1 K/mcL (4.3-11.1)
[2021-06-26 02:28] LABS: BUN/Creatinine Ratio 17 (6-26); Blood Urea Nitrogen 16 mg/dL (8-23); Calcium 8.9 mg/dL (8.6-10.3); Carbon Dioxide 24 mEq/L (23-29); Chloride 104 mEq/L (98-107); Glucose 110 mg/dL (70-105); Osmolality,Calculated 284 (280-300); Potassium 3.9 mEq/L (3.5-5.1); Sodium 136 mEq/L (136-145); eGFR For African Americans > 60 (> 60); eGFR For Non-African Americans > 60 (> 60)
[2021-06-26 03:44] VITALS: O2SAT 96
[2021-06-26] MEDS: *HR* Enoxaparin 80 MG/0.8 ML SYRINGE SQ SCH (05:31)
[2021-06-26 07:47] VITALS: BP 118/78; PULSE 65; TEMP 97.8
[2021-06-26] MEDS: Insulin LISPRO 300 UNITS/3 ML VIAL SUBQ SCH ×2 (09:38→11:24)
[2021-06-26] MEDS: Aspirin Enteric Coated 81 MG Tablet PO SCH (09:47)
[2021-06-26] MEDS: Metoprolol XL (24 HR) Succ 50 MG TAB.ER.24H PO SCH (09:47)
[2021-06-26] MEDS: lisinopriL 5 MG TABLET PO SCH (09:47)
== END 2021-06-26 12:41 | disposition home or self-care (01) | DRG 309 ==
LOC: 2NENU 12:28 → EMEROOARM 12:28 → 2NENU 16:27 → SUATTDRO 06-25 18:57
PROVIDERS: ADMIT Student in an Organized Health Care Education/Training Program; ATTEND Internal Medicine

== ENCOUNTER 2022-02-11 23:22 | Inpatient (IN) ==
[2022-02-12] MEDS ORDERED: 0.9 % Sodium Chloride 1,000 ML IV ONE (01:07)
[2022-02-12] MEDS ORDERED: Doxycycline 100 MG in 0.9 % Sodium Chloride Mini Bag 100 ML IVPB ONE (01:10)
[2022-02-12] MEDS ORDERED: cefTRIAXone 1,000 MG in Water for inj. (sterile) 10 ML IVP ONE (01:10)
[2022-02-12 01:42] LABS: Basophils % 0.4 %; Hematocrit 27.5 % (37.5-50.1); Immature Granulocytes % 1.9 % (0-4); Lymphocytes # 0.3 K/mcL (0.6-4.6); Lymphocytes % 2.8 %; Mean Corpuscular HGB Conc 32.7 g/dL (31.6-35.5); Mean Corpuscular Hemoglobin 31.1 pg (28.0-33.3); Mean Corpuscular Volume 95.2 fL (83.0-100.0); Monocytes # 0.5 K/mcL (0.0-1.3); Monocytes % 4.9 %; Neutrophils # 8.5 K/mcL (1.6-8.9); Platelet Count 177 K/mcL (140-400); Red Blood Count 2.89 M/mcL (4.19-5.50); Red Cell Distribution Width 15.8 % (11.5-14.5); White Blood Count 9.5 K/mcL (4.3-11.1)
[2022-02-12 02:01] LABS: Alanine Aminotransferase 64 Units/L (7-52); Albumin 3.1 g/dL (3.5-5.7); Albumin/Globulin Ratio 1.4 (1.1-2.2); Alkaline Phosphatase 69 Units/L (34-104); Aspartate Amino Transferase 59 Units/L (13-39); BUN/Creatinine Ratio 16 (6-26); Bilirubin,Total 0.9 mg/dL (0.3-1.0); Blood Urea Nitrogen 17 mg/dL (8-23); Calcium 8.8 mg/dL (8.6-10.3); Carbon Dioxide 20 mEq/L (23-29); Chloride 101 mEq/L (98-107); Globulin 2.2 g/dL (2.4-3.5); Glucose 178 mg/dL (70-105); Osmolality,Calculated 282 (280-300); Potassium 4.3 mEq/L (3.5-5.1); Sodium 133 mEq/L (136-145); Total Protein 5.3 g/dL (6.4-8.9); eGFR For African Americans > 60 (> 60); eGFR For Non-African Americans > 60 (> 60)
[2022-02-12 02:06] LABS: Troponin I 0.06 ng/mL (< 0.04)
[2022-02-12] MEDS ORDERED: *HR* Metoprolol 5 MG/5 ML VIAL IVP ONE (02:32)
[2022-02-12] MEDS ORDERED: Acetaminophen 325 MG TABLET PO PRN (02:36)
[2022-02-12] MEDS ORDERED: Ondansetron 4 MG/2 ML VIAL IVP PRN (02:36)
[2022-02-12] MEDS ORDERED: *HR* HYDROcodone/Acet 5/325 mg TABLET PO PRN ×2 (02:36→02:59)
[2022-02-12] MEDS ORDERED: Melatonin 3 MG TABLET PO PRN (02:36)
[2022-02-12] MEDS ORDERED: Naloxone 0.4 MG/ML INJ IVP PRN (02:36)
[2022-02-12] MEDS ORDERED: Ringers Solution, Lactated 1,000 ML IVC SCH (02:45)
[2022-02-12 02:49] LABS: Adenovirus Not Detected (Not Detect); Bordetella Pertussis Not Detected (Not Detect); Chlamydophila pneumoniae Not Detected (Not Detect); Coronavirus 229E Not Detected (Not Detect); Coronavirus HKU1 Not Detected (Not Detect); Coronavirus NL63 Not Detected (Not Detect); Coronavirus OC43 Not Detected (Not Detect); Human Metapneumovirus Not Detected (Not Detect); Human Rhinovirus/Enterovirus Not Detected (Not Detect); Influenza A Subtype 2009 H1 Not Detected (Not Detect); Influenza B Not Detected (Not Detect); Mycoplasma pneumoniae Not Detected (Not Detect); Parainfluenza Virus 1 Not Detected (Not Detect); Parainfluenza Virus 2 Not Detected (Not Detect); Parainfluenza Virus 3 Not Detected (Not Detect); Parainfluenza Virus 4 Not Detected (Not Detect); Respiratory Syncytial Virus Not Detected (Not Detect); SARS-CoV-2 Not Detected (Not Detect)
[2022-02-12] MEDS: Levalbuterol Neb 0.63 MG/3 ML IH SCH ×4 (03:21→20:05)
[2022-02-12] MEDS: DilTIAZem 50 MG/50 ML IV.SOLN IVC SCH ×4 (04:42→22:47)
[2022-02-12 05:49] LABS: INR 1.7; Prothrombin Time 18.8 Seconds (9.4-12.1)
[2022-02-12] MEDS: 0.9 % Sodium Chloride 1,000 ML IVC SCH ×3 (06:11→22:46)
[2022-02-12] MEDS: Cefepime HCl 2,000 MG in 0.9 % Sodium Chloride 10 ML IVP SCH ×3 (08:22→22:48)
[2022-02-12] MEDS: Apixaban 5 MG TABLET PO SCH ×2 (08:22→20:12)
[2022-02-12] MEDS: Metoprolol XL (24 HR) Succ 50 MG TAB.ER.24H PO SCH ×3 (08:28→20:11)
[2022-02-12] MEDS: Doxycycline 100 MG in 0.9 % Sodium Chloride Mini Bag 100 ML IVPB SCH (17:01)
[2022-02-12] MEDS ORDERED: Warfarin perPT PO PRN (18:00)
[2022-02-13] MEDS: DilTIAZem 50 MG/50 ML IV.SOLN IVC SCH (03:20)
[2022-02-13] MEDS: Levalbuterol Neb 0.63 MG/3 ML IH SCH ×4 (03:34→20:00)
[2022-02-13 04:39] LABS: Basophils % 0.2 %; Hematocrit 26.1 % (37.5-50.1); Hemoglobin 8.4 g/dL (12.9-16.9); Immature Granulocytes % 3.9 % (0-4); Lymphocytes # 0.5 K/mcL (0.6-4.6); Lymphocytes % 4.2 %; Mean Corpuscular HGB Conc 32.2 g/dL (31.6-35.5); Mean Corpuscular Volume 96.3 fL (83.0-100.0); Mean Platelet Volume 10.5 fL (9.4-12.4); Monocytes # 0.5 K/mcL (0.0-1.3); Platelet Count 182 K/mcL (140-400); Red Blood Count 2.71 M/mcL (4.19-5.50); Red Cell Distribution Width 15.5 % (11.5-14.5); Segmented Neutrophils % 87.7 %; White Blood Count 12.5 K/mcL (4.3-11.1)
[2022-02-13 04:40] LABS: INR 1.5; Prothrombin Time 17.2 Seconds (9.4-12.1)
[2022-02-13 04:56] LABS: BUN/Creatinine Ratio 26 (6-26); Blood Urea Nitrogen 23 mg/dL (8-23); Calcium 8.6 mg/dL (8.6-10.3); Carbon Dioxide 16 mEq/L (23-29); Chloride 109 mEq/L (98-107); Glucose 251 mg/dL (70-105); Osmolality,Calculated 292 (280-300); Potassium 4.5 mEq/L (3.5-5.1); Sodium 135 mEq/L (136-145); eGFR For African Americans > 60 (> 60); eGFR For Non-African Americans > 60 (> 60)
[2022-02-13] MEDS: Doxycycline 100 MG in 0.9 % Sodium Chloride Mini Bag 100 ML IVPB SCH ×2 (05:27→16:48)
[2022-02-13] MEDS ORDERED: D5% in Water 1,000 ML IVC PRN (07:31)
[2022-02-13] MEDS ORDERED: *HR* Dextrose 50 % in Water (Syg) 50 ML SYRINGE IVP PRN (07:31)
[2022-02-13] MEDS ORDERED: Dextrose 4 GM Chewable Tablets PO PRN ×2 (07:31)
[2022-02-13] MEDS: 0.9 % Sodium Chloride 1,000 ML IVC SCH (08:55)
[2022-02-13] MEDS: Apixaban 5 MG TABLET PO SCH ×2 (08:55→21:06)
[2022-02-13] MEDS: Metoprolol XL (24 HR) Succ 50 MG TAB.ER.24H PO SCH ×2 (08:55→21:06)
[2022-02-13] MEDS: Cefepime HCl 2,000 MG in 0.9 % Sodium Chloride 10 ML IVP SCH ×3 (08:56→22:50)
[2022-02-13] MEDS: DilTIAZem CD (24hr) 120 MG CAP.ER.24H PO SCH (11:41)
[2022-02-13] MEDS: Insulin LISPRO 300 UNITS/3 ML VIAL SUBQ SCH ×2 (11:42→16:49)
[2022-02-13] MEDS ORDERED: Menthol 1 EACH LOZENGE PO PRN (21:26)
[2022-02-13] MEDS ORDERED: *HR* Metoprolol 5 MG/5 ML VIAL IVP ONE (22:29)
[2022-02-14] MEDS: 0.9 % Sodium Chloride 1,000 ML IVC SCH ×2 (00:04→03:52)
[2022-02-14] MEDS: Levalbuterol Neb 0.63 MG/3 ML IH SCH ×4 (04:16→22:18)
[2022-02-14] MEDS: Doxycycline 100 MG in 0.9 % Sodium Chloride Mini Bag 100 ML IVPB SCH ×2 (05:09→16:05)
[2022-02-14] MEDS ORDERED: Morphine Sulfate 2 MG/ML SYRINGE IVP ONE (05:31)
[2022-02-14] MEDS ORDERED: *HR* Metoprolol 5 MG/5 ML VIAL IVP ONE (06:30)
[2022-02-14 06:32] LABS: INR 1.6; Prothrombin Time 17.5 Seconds (9.4-12.1)
[2022-02-14] MEDS: Insulin LISPRO 300 UNITS/3 ML VIAL SUBQ SCH ×3 (07:40→16:06)
[2022-02-14] MEDS: Metoprolol XL (24 HR) Succ 50 MG TAB.ER.24H PO SCH ×2 (07:41→20:42)
[2022-02-14] MEDS: Apixaban 5 MG TABLET PO SCH ×2 (07:41→20:42)
[2022-02-14] MEDS: Cefepime HCl 2,000 MG in 0.9 % Sodium Chloride 10 ML IVP SCH ×2 (07:41→16:07)
[2022-02-14] MEDS: DilTIAZem CD (24hr) 120 MG CAP.ER.24H PO SCH (07:42)
[2022-02-14] MEDS ORDERED: Furosemide 40 MG/4 ML VIAL IVP ONE ×2 (08:21→08:29)
[2022-02-14 10:14] LABS: BUN/Creatinine Ratio 28 (6-26); Blood Urea Nitrogen 29 mg/dL (8-23); Calcium 8.8 mg/dL (8.6-10.3); Carbon Dioxide 17 mEq/L (23-29); Chloride 111 mEq/L (98-107); Glucose 176 mg/dL (70-105); Osmolality,Calculated 296 (280-300); Potassium 4.6 mEq/L (3.5-5.1); Sodium 138 mEq/L (136-145); eGFR For African Americans > 60 (> 60); eGFR For Non-African Americans > 60 (> 60)
[2022-02-14] MEDS ORDERED: Metoprolol XL (24 HR) Succ 50 MG TAB.ER.24H PO ONE (12:20)
[2022-02-14] MEDS ORDERED: Metoprolol XL (24 HR) Succ 50 MG TAB.ER.24H PO SCH (12:30)
[2022-02-14 12:54] LABS: Estimated Average Glucose 180 mg/dl; Hemoglobin A1C 7.9 %
[2022-02-14] MEDS: Furosemide 40 MG/4 ML VIAL IVP SCH (16:15)
[2022-02-15 02:21] LABS: Basophils # 0.1 K/mcL (0.0-0.2); Basophils % 0.7 %; Eosinophils % 0.1 %; Hematocrit 27.9 % (37.5-50.1); Immature Granulocytes % 8.8 % (0-4); Lymphocytes # 0.5 K/mcL (0.6-4.6); Lymphocytes % 3.5 %; Mean Corpuscular HGB Conc 32.3 g/dL (31.6-35.5); Mean Corpuscular Hemoglobin 30.8 pg (28.0-33.3); Mean Corpuscular Volume 95.5 fL (83.0-100.0); Monocytes # 0.7 K/mcL (0.0-1.3); Monocytes % 5.1 %; Neutrophils # 11.9 K/mcL (1.6-8.9); Nucleated Red Blood Cells 0.9 /100 WBC (0); Platelet Count 226 K/mcL (140-400); Red Blood Count 2.92 M/mcL (4.19-5.50); Red Cell Distribution Width 15.9 % (11.5-14.5); Segmented Neutrophils % 81.8 %; White Blood Count 14.5 K/mcL (4.3-11.1)
[2022-02-15 02:28] LABS: INR 1.8
[2022-02-15 02:35] LABS: BUN/Creatinine Ratio 28 (6-26); Blood Urea Nitrogen 28 mg/dL (8-23); Calcium 8.6 mg/dL (8.6-10.3); Carbon Dioxide 22 mEq/L (23-29); Chloride 109 mEq/L (98-107); Glucose 159 mg/dL (70-105); Osmolality,Calculated 299 (280-300); Sodium 140 mEq/L (136-145); eGFR For African Americans > 60 (> 60); eGFR For Non-African Americans > 60 (> 60)
[2022-02-15] MEDS: Levalbuterol Neb 0.63 MG/3 ML IH SCH ×4 (03:58→20:36)
[2022-02-15] MEDS: Doxycycline 100 MG in 0.9 % Sodium Chloride Mini Bag 100 ML IVPB SCH ×2 (05:32→17:09)
[2022-02-15] MEDS: DilTIAZem CD (24hr) 120 MG CAP.ER.24H PO SCH (07:47)
[2022-02-15] MEDS: Metoprolol XL (24 HR) Succ 50 MG TAB.ER.24H PO SCH ×2 (07:47→19:42)
[2022-02-15] MEDS: Apixaban 5 MG TABLET PO SCH ×2 (07:47→19:41)
[2022-02-15] MEDS: Furosemide 40 MG/4 ML VIAL IVP SCH ×2 (07:48→17:10)
[2022-02-15] MEDS: Cefepime HCl 2,000 MG in 0.9 % Sodium Chloride 10 ML IVP SCH ×4 (07:48→23:01)
[2022-02-15] MEDS: Insulin LISPRO 300 UNITS/3 ML VIAL SUBQ SCH ×3 (08:00→17:10)
[2022-02-15] MEDS ORDERED: *HR* Metoprolol 5 MG/5 ML VIAL IVP ONE (10:19)
[2022-02-16 03:12] LABS: Basophils # 0.1 K/mcL (0.0-0.2); Basophils % 0.6 %; Eosinophils # 0.1 K/mcL (0.0-0.6); Eosinophils % 1.2 %; Hematocrit 27.6 % (37.5-50.1); Hemoglobin 8.9 g/dL (12.9-16.9); Immature Granulocytes % 7.6 % (0-4); Lymphocytes # 0.4 K/mcL (0.6-4.6); Lymphocytes % 4.1 %; Mean Corpuscular HGB Conc 32.2 g/dL (31.6-35.5); Mean Corpuscular Hemoglobin 30.7 pg (28.0-33.3); Mean Corpuscular Volume 95.2 fL (83.0-100.0); Mean Platelet Volume 10.3 fL (9.4-12.4); Monocytes # 0.4 K/mcL (0.0-1.3); Monocytes % 4.7 %; Neutrophils # 7.4 K/mcL (1.6-8.9); Nucleated Red Blood Cells 0.7 /100 WBC (0); Platelet Count 211 K/mcL (140-400); Segmented Neutrophils % 81.8 %; White Blood Count 9.1 K/mcL (4.3-11.1)
[2022-02-16 03:22] LABS: INR 1.7; Prothrombin Time 19.3 Seconds (9.4-12.1)
[2022-02-16 03:57] LABS: BUN/Creatinine Ratio 26 (6-26); Blood Urea Nitrogen 27 mg/dL (8-23); Calcium 8.5 mg/dL (8.6-10.3); Carbon Dioxide 28 mEq/L (23-29); Chloride 105 mEq/L (98-107); Glucose 138 mg/dL (70-105); Osmolality,Calculated 297 (280-300); Potassium 3.3 mEq/L (3.5-5.1); Sodium 140 mEq/L (136-145); eGFR For African Americans > 60 (> 60); eGFR For Non-African Americans > 60 (> 60)
[2022-02-16 04:01] LABS: Anisocytosis 1+ (Not Present); Platelet Estimate Normal (Normal); Poikilocytosis 1+ (Not Present); Polychromasia 1+ (Not Present)
[2022-02-16] MEDS: Levalbuterol Neb 0.63 MG/3 ML IH SCH ×4 (04:30→20:14)
[2022-02-16] MEDS: Doxycycline 100 MG in 0.9 % Sodium Chloride Mini Bag 100 ML IVPB SCH ×2 (06:10→18:05)
[2022-02-16] MEDS: Insulin LISPRO 300 UNITS/3 ML VIAL SUBQ SCH ×3 (07:57→16:41)
[2022-02-16] MEDS: DilTIAZem CD (24hr) 120 MG CAP.ER.24H PO SCH (08:45)
[2022-02-16] MEDS: Apixaban 5 MG TABLET PO SCH ×2 (08:46→21:02)
[2022-02-16] MEDS: Multivit/Ca/Min/Fe/FA 1 TAB TABLET PO SCH (08:46)
[2022-02-16] MEDS: Metoprolol XL (24 HR) Succ 50 MG TAB.ER.24H PO SCH ×2 (08:46→21:02)
[2022-02-16] MEDS: Cefepime HCl 2,000 MG in 0.9 % Sodium Chloride 10 ML IVP SCH ×3 (08:46→23:43)
[2022-02-16] MEDS: Furosemide 40 MG/4 ML VIAL IVP SCH ×2 (08:47→16:40)
[2022-02-16] MEDS: DilTIAZem 50 MG/50 ML IV.SOLN IVC SCH (12:09)
[2022-02-16] MEDS ORDERED: DilTIAZem CD (24hr) 120 MG CAP.ER.24H PO ONE (12:45)
[2022-02-16] MEDS: Sennosides/Docusate Sodium TABLET PO SCH ×2 (14:37→21:02)
[2022-02-16] MEDS: polyethylene glycoL 3350 17 GM POWD.PACK PO SCH (14:37)
[2022-02-17 01:19] LABS: Hematocrit 26.6 % (37.5-50.1); Hemoglobin 8.8 g/dL (12.9-16.9); Mean Corpuscular HGB Conc 33.1 g/dL (31.6-35.5); Mean Corpuscular Hemoglobin 31.4 pg (28.0-33.3); Mean Platelet Volume 9.9 fL (9.4-12.4); Nucleated Red Blood Cells 0.3 /100 WBC (0); Platelet Count 199 K/mcL (140-400); White Blood Count 7.6 K/mcL (4.3-11.1)
[2022-02-17 01:28] LABS: INR 1.8; Prothrombin Time 20.4 Seconds (9.4-12.1)
[2022-02-17 01:37] LABS: BUN/Creatinine Ratio 26 (6-26); Blood Urea Nitrogen 27 mg/dL (8-23); Calcium 8.6 mg/dL (8.6-10.3); Carbon Dioxide 27 mEq/L (23-29); Chloride 101 mEq/L (98-107); Glucose 165 mg/dL (70-105); Magnesium 1.8 mg/dL (1.6-2.6); Osmolality,Calculated 297 (280-300); Potassium 3.2 mEq/L (3.5-5.1); Sodium 139 mEq/L (136-145); eGFR For African Americans > 60 (> 60); eGFR For Non-African Americans > 60 (> 60)
[2022-02-17 01:55] LABS: Eosinophils # 0.2 K/mcL (0.0-0.6); Monocytes # 0.5 K/mcL (0.0-1.3)
[2022-02-17 01:56] LABS: Platelet Estimate Normal (Normal)
[2022-02-17] MEDS: Levalbuterol Neb 0.63 MG/3 ML IH SCH ×2 (04:32→08:05)
[2022-02-17] MEDS: Doxycycline 100 MG in 0.9 % Sodium Chloride Mini Bag 100 ML IVPB SCH (05:26)
[2022-02-17] MEDS: 0.9 % Sodium Chloride 1,000 ML IVC SCH (07:24)
[2022-02-17] MEDS ORDERED: DilTIAZem CD (24hr) 240 MG CAP.ER.24H PO SCH (09:00)
[2022-02-17] MEDS: Multivit/Ca/Min/Fe/FA 1 TAB TABLET PO SCH (09:42)
[2022-02-17] MEDS: Cefepime HCl 2,000 MG in 0.9 % Sodium Chloride 10 ML IVP SCH (09:43)
[2022-02-17] MEDS: Apixaban 5 MG TABLET PO SCH (09:43)
[2022-02-17] MEDS: Sennosides/Docusate Sodium TABLET PO SCH (09:43)
[2022-02-17] MEDS: Metoprolol XL (24 HR) Succ 50 MG TAB.ER.24H PO SCH (09:43)
[2022-02-17] MEDS: Furosemide 40 MG/4 ML VIAL IVP SCH (09:46)
[2022-02-17] MEDS: Insulin LISPRO 300 UNITS/3 ML VIAL SUBQ SCH ×2 (09:47→11:52)
[2022-02-17] MEDS: polyethylene glycoL 3350 17 GM POWD.PACK PO SCH (09:47)
[2022-02-17 11:05] VITALS: BP 103/70; PULSE 112; TEMP 98; O2SAT 93
== END 2022-02-17 12:30 | disposition home or self-care (01) | DRG 871 ==
LOC: EMEROOARM 23:22 → 2ANU 23:22
PROVIDERS: ADMIT Internal Medicine; ATTEND Internal Medicine